=== PATIENT | female | born 1995 | race Caucasian/White ===

== ENCOUNTER → 2017-06-29 | Outpatient (CLI) | payer OTHER ==
[~2017-06-29] MED LIST: OCP; SULF-222 PO
[2017-06-29 16:02] LABS: BASOPHILS % (AUTO) 0 % (0-10); EOSINOPHILS # (AUTO) 0.1 10^3/uL (0.0-0.3); EOSINOPHILS % (AUTO) 2 % (0-10); LYMPHOCYTES # (AUTO) 3.3 X 10^3 (1.0-4.0); LYMPHOCYTES % (AUTO) 42 % (12-44); MEAN CORPUSCULAR HEMOGLOBIN 30 PG (25-34); MEAN CORPUSCULAR HGB CONC 34 G/DL (32-36); MEAN CORPUSCULAR VOLUME 89 FL (80-99); MEAN PLATELET VOLUME 9.3 FL (7.4-10.4); MONOCYTES # (AUTO) 1.1 X 10^3 (0.0-1.0); MONOCYTES % (AUTO) 13 % (0-12); NEUTROPHILS # (AUTO) 3.5 X 10^3 (1.8-7.8); NEUTROPHILS % (AUTO) 43 % (42-75); PLATELET COUNT 254 10^3/uL (130-400); RED BLOOD COUNT 4.39 10^6/uL (4.35-5.85); RED CELL DISTRIBUTION WIDTH 12.9 % (10.0-14.5)
[2017-06-29 16:03] LABS: BILIRUBIN,URINE NEGATIVE (NEGATIVE); KETONES,URINE NEGATIVE (NEGATIVE); LEUKOCYTE ESTERASE ,URINE NEGATIVE (NEGATIVE); NITRITE,URINE NEGATIVE (NEGATIVE); PH,URINE 6 (5-9); PROTEIN,URINE NEGATIVE (NEGATIVE); UROBILINOGEN,URINE NORMAL (NORMAL)
[2017-06-29 16:12] LABS: SQUAMOUS EPITHELIAL CELL,UR 0-2 /HPF; WBC,URINE RARE /HPF
[2017-06-29 16:22] LABS: ALANINE AMINOTRANSFERASE 14 U/L (0-55); ALBUMIN 4.6 GM/DL (3.2-4.5); ANION GAP 6 MMOL/L (5-14); ASPARTATE AMINO TRANSFERASE 17 U/L (5-34); BILIRUBIN,TOTAL 0.3 MG/DL (0.1-1.0); BLOOD UREA NITROGEN 17 MG/DL (7-18); BUN/CREATININE RATIO 22; CALCIUM 9.8 MG/DL (8.5-10.1); CARBON DIOXIDE 28 MMOL/L (21-32); CHLORIDE 104 MMOL/L (98-107); CREATININE SERUM 0.78 MG/DL (0.60-1.30); GFR ESTIMATED > 60; GLUCOSE 82 MG/DL (70-105); POTASSIUM 3.7 MMOL/L (3.6-5.0); SODIUM 138 MMOL/L (135-145); TOTAL PROTEIN 7.5 GM/DL (6.4-8.2)
== END ==
LOC: LAB 15:39
PROVIDERS: ATTEND Family Medicine
DX: N93.9 Abnormal uterine and vaginal bleeding, unspecified; R10.2 Pelvic and perineal pain
CPT/HCPCS: 36415; 80053; 81000; 84703; 85025

== ENCOUNTER → 2019-06-18 | Outpatient (CLI) | payer OTHER ==
--- NOTE | 2019-06-18 12:45 | Diagnostic Imaging Report ---
INDICATION: Left flank pain. FINDINGS: Supine image of the abdomen revealed normal bowel gas pattern. There is moderate amount of stool at the level of the transverse colon. Intrauterine device appears to be in good position. There is no evidence of free intraperitoneal gas or pneumatosis. No pathologic abdominal calcification is seen. IMPRESSION: There may be mild constipation, however, no acute abnormality is seen in the abdomen. Dictated by: Dictated on workstation # [id number]
== END ==
LOC: RAD 12:22
PROVIDERS: ATTEND Nurse Practitioner Family
DX: R10.9 Unspecified abdominal pain (principal)
CPT/HCPCS: 74018

== ENCOUNTER → 2019-07-09 | Outpatient (CLI) | payer OTHER ==
--- NOTE | 2019-07-09 11:11 | Diagnostic Imaging Report ---
INDICATION: Right wrist injury from a fall 3 views of the right wrist show no fracture or dislocation. Joint space is well-maintained. Articular surfaces are smooth. IMPRESSION: Negative right wrist Dictated by: Dictated on workstation # [id number]
== END ==
LOC: RAD 10:50
PROVIDERS: ATTEND Nurse Practitioner Family
DX: S69.91XA Unspecified injury of right wrist, hand and finger(s), initial encounter (principal); W19.XXXA Unspecified fall, initial encounter
CPT/HCPCS: 73110

== ENCOUNTER → 2020-06-18 | Outpatient (CLI) | payer OTHER | LOC: LABNPT 05:57 | PROVIDERS: ATTEND Nurse Practitioner Family | DX: J02.9 Acute pharyngitis, unspecified (principal); R11.2 Nausea with vomiting, unspecified; Z20.828 Contact with and (suspected) exposure to other viral communicable diseases | CPT/HCPCS: 87635 ==

== ENCOUNTER → 2022-09-10 | Outpatient (CLI) | payer OTHER | LOC: LAB 14:19 | PROVIDERS: ATTEND Obstetrics & Gynecology | DX: N92.6 Irregular menstruation, unspecified (principal) | CPT/HCPCS: 84702 ==

== ENCOUNTER 2022-11-18 14:27 | Emergency (ER) | payer OTHER ==
[~2022-11-18] VITALS: Ht 157 cm; Wt 52.6 kg
--- NOTE | 2022-11-18 14:42 | ED Abdominal Pain ---
General Chief Complaint: Abdominal/GI Problems Stated Complaint: LOWER BACK PAIN | POSSIBLE KIDNEY STONES Source of Information: Patient Exam Limitations: No Limitations History of Present Illness Date Seen by Provider: Nov 18, 2022 Time Seen by Provider: 14:40 Initial Comments Patient is a 27-year-old female who presents ED with left flank pain. Started on Tuesday abrupt onset. Described as sharp and stabbing with radiation to the left-sided abdomen. Patient states she did vomited Tuesday but was concerned for possible food poisoning. This pain has been constant. She also started her menstrual cycle and denies heavier bleeding. Denies of any urinary symptoms such as pain with urination, bloody urine. She reports intermittent nausea without any diarrhea. No history of previous abdominal surgery or history of kidney stones. She did lift some heavy objects this past Tuesday but had no specific injury that she can recall. No history of previous pain to this location. Denies chest pain, shortness of breath, cough, headache, dizziness, fever, headache, chills. Took ibuprofen at home without much improvement. Rates pain 8 out of 10 Allergies and Home Medications Allergies Coded Allergies: Penicillins (Unverified Allergy, Unknown, 01/25/15) Patient Home Medication List Home Medication List Reviewed: Yes Hydrocodone/Acetaminophen (Hydrocodone-Acetamin 5-325 mg) 5 Mg-325 Mg Tablet, 1 TAB PO Q4H PRN for PAIN-MODERATE (5-7) Prescribed by: LETTY BLOUNT on 11/18/22 1610 Ketorolac Tromethamine (Ketorolac Tromethamine) 10 Mg Tablet, 10 MG PO Q6H Prescribed by: LETTY BLOUNT on 11/18/22 1609 Ondansetron (Ondansetron Odt) 4 Mg Tab.rapdis, 4 MG SL Q4H PRN for NAUSEA/VOMITING Prescribed by: LETTY BLOUNT on 11/18/22 1609 Tamsulosin HCl (Flomax) 0.4 Mg Cap, 0.4 MG PO DAILY Prescribed by: LETTY BLOUNT on 11/18/22 1609 Trimethoprim/Sulfamethoxazole (Bactrim DS) 1 Ea Tablet, 1 EA PO BID Prescribed by: CLINT ALLAN on 01/25/15 1642 [Ocp] , (Reported) Entered as Reported by: LAKSHMI BAUTISTA on 01/25/15 5838 Review of Systems Review of Systems Constitutional: No chills, No diaphoresis, No malaise, No weakness EENTM: No Eye Pain Respiratory: Denies Cough, Denies Shortness of Air, Denies SOA at Rest Genitourinary: Denies Drainage, Denies Frequency; Flank Pain; Denies Urgency Musculoskeletal: back pain; No joint pain All Other Systems Reviewed Negative Unless Noted: Yes Past Yejnclt-Ywwcvh-Wijxbm Hx Patient Social History Tobacco Use?: No Use of E-Cig and/or Vaping dev: Yes E-Cig or Vaping type used: Nicotine Substance use?: No Alcohol Use?: Yes Alcohol Frequency: Once in a while Pt feels they are or have been: No Immunizations Up To Date Influenza Vaccine Up-to-Date: No; Not Current Past Medical History Surgery/Hospitalization HX: SX: TONSILS, C-SEC Physical Exam Vital Signs Vital Signs - First Documented 11/18/22 14:37 Temp 36.8 Pulse 90 Resp 16 B/P (MAP) 145/89 (107) Pulse Ox 99 Capillary Refill : Height/Weight/BMI Height: 5'4" Weight: 105lbs. oz. 47.060322jn; BMI Method: General Appearance: WD/WN, no apparent distress HEENT: PERRL/EOMI, normal ENT inspection, TMs normal Neck: non-tender, full range of motion, supple Respiratory: chest non-tender, lungs clear, normal breath sounds, no r espiratory distress Cardiovascular: regular rate, rhythm, no edema, no gallop Gastrointestinal: normal bowel sounds, soft, no organomegaly, tenderness (Left- sided abdominal tenderness on palpation.) Extremities: normal range of motion, non-tender, normal inspection, no pedal edema Back: normal inspection, CVA tenderness (L) Neurologic/Psychiatric: utilization management rn II-XII nml as tested, no motor/sensory deficits, alert, normal mood/affect, oriented x 3 Skin: normal color, warm/dry Progress/Results/Core Measures Results/Orders Lab Results Laboratory Tests Test 11/18/22 14:37 11/18/22 14:55 Range/Units White Blood Count 11.6 H 4.3-11.0 10^3/uL Red Blood Count 4.40 3.80-5.11 10^6/uL Hemoglobin 13.4 11.5-16.0 g/dL Hematocrit 40 35-52 % Mean Corpuscular Volume 90 80-99 fL Mean Corpuscular Hemoglobin 31 25-34 pg Mean Corpuscular Hemoglobin Concent 34 32-36 g/dL Red Cell Distribution Width 12.3 10.0-14.5 % Platelet Count 275 130-400 10^3/uL Mean Platelet Volume 9.1 9.0-12.2 fL Immature Granulocyte % (Auto) 0 % Neutrophils (%) (Auto) 68 42-75 % Lymphocytes (%) (Auto) 20 12-44 % Monocytes (%) (Auto) 10 0-12 % Eosinophils (%) (Auto) 1 0-10 % Basophils (%) (Auto) 0 0-10 % Neutrophils # (Auto) 7.9 H 1.8-7.8 X 10^3 Lymphocytes # (Auto) 2.4 1.0-4.0 X 10^3 Monocytes # (Auto) 1.2 H 0.0-1.0 X 10^3 Eosinophils # (Auto) 0.2 0.0-0.3 10^3/uL Basophils # (Auto) 0.0 0.0-0.1 10^3/uL Immature Granulocyte # (Auto) 0.0 0.0-0.1 10^3/uL Sodium Level 140 135-145 MMOL/L Potassium Level 3.7 3.6-5.0 MMOL/L Chloride Level 106 98-107 MMOL/L Carbon Dioxide Level 25 21-32 MMOL/L Anion Gap 9 5-14 MMOL/L Blood Urea Nitrogen 18 7-18 MG/DL Creatinine 1.50 H 0.60-1.30 MG/DL Estimat Glomerular Filtration Rate 49 BUN/Creatinine Ratio 12 Glucose Level 113 H 70-105 MG/DL Calcium Level 9.3 8.5-10.1 MG/DL Corrected Calcium 8.9 8.5-10.1 MG/DL Total Bilirubin 0.6 0.1-1.0 MG/DL Aspartate Amino Transf (AST/SGOT) 16 5-34 U/L Alanine Aminotransferase (ALT/SGPT) 9 0-55 U/L Alkaline Phosphatase 63 40-136 U/L Total Protein 7.7 6.4-8.2 GM/DL Albumin 4.5 3.2-4.5 GM/DL Lipase 24 8-78 U/L Serum Test, Qualitative NEGATIVE NEGATIVE Urine Color YELLOW Urine Clarity CLEAR Urine pH 6.0 5-9 Urine Specific [place] 1.025 H 1.016-1.022 Urine Protein TRACE H NEGATIVE Urine Glucose (UA) NEGATIVE NEGATIVE Urine Ketones NEGATIVE NEGATIVE Urine Nitrite NEGATIVE NEGATIVE Urine Bilirubin NEGATIVE NEGATIVE Urine Urobilinogen 0.2 < = 1.0 MG/DL Urine Leukocyte Esterase NEGATIVE NEGATIVE Urine RBC (Auto) 3+ H NEGATIVE Urine RBC 50-100 H /HPF Urine WBC NONE /HPF Urine Squamous Epithelial Cells 5-10 /HPF Urine Crystals NONE /LPF Urine Bacteria NEGATIVE /HPF Urine Casts NONE /LPF Urine Mucus NEGATIVE /LPF Urine Culture Indicated NO My Orders Orders - MYRANDA DESAI Ua Culture If Indicated (11/18/22 14:29) Cbc With Automated Diff (11/18/22 14:39) Comprehensive Metabolic Panel (11/18/22 14:39) Lipase (11/18/22 14:39) Ketorolac Injection (Toradol Injection) (11/18/22 14:45) Hcg,Qualitative Serum (11/18/22 14:45) Ct Abd/Pelvis Wo(Kidney Stone) (11/18/22 14:45) Ns Iv 1000 Ml (Sodium Chloride 0.9%) (11/18/22 15:42) Medications Given in ED Current Medications Medications Dose Ordered Sig/Anna Route Start Time Stop Time Status Last Admin Dose Admin Ketorolac Tromethamine 30 mg ONCE ONCE IVP 11/18/22 14:45 11/18/22 14:46 DC 11/18/22 14:43 30 MG Vital Signs/I&O 11/18/22 14:37 Temp 36.8 Pulse 90 Resp 16 B/P (MAP) 145/89 (107) Pulse Ox 99 Departure Communication (PCP) Patient has a 6.8 mm obstructing stone in left UPJ. Urinalysis was positive for hematuria without evidence of infection. White blood count 1.6. Slight change in kidney function of creatinine 1.5, GFR 43. Pain improved with IV Toradol. Was started on a liter of fluid. Patient without any active vomiting. CT abdomen pelvis did note a 2 mm stone in the right kidney. Discussed results with Dr. Randolph urologist at [facility]. Patient's pain currently 3 out of 10. As long as patient is improved the pain patient can be discharged home with follow-up this next week in their office. They will call patient. This number was provided to staff. Urinalysis negative for . Patient will be discharged for Zofran as needed for nausea, Flomax to help urinate and Toradol. Patient was requesting Toradol for pain as she cannot tolerate narcotics.. Did provide a few days worth of hydrocodone for breakthrough pain. If any worsening symptoms and pain to return back to ED for further evaluation such as decreased urine output, passing of clots, fever Impression Primary Impression: Nephrolithiasis Disposition: HOME, SELF-CARE Condition: Stable Departure-Patient Inst. Decision time for Depature: 15:52 Referrals: FLAVIA ABAD MD (PCP/Family) Primary Care Physician Patient Instructions: Kidney Stone, Adult ED Add. Discharge Instructions: Expecting a call from Dr. Randolph urology at [facility]. Recommend staying hydrated. Flomax will help urinate. Zofran for nausea. Take Toradol for pain. If no improvement may take hydrocodone All discharge instructions reviewed with patient and/or family. Voiced understanding. Scripts Hydrocodone/Acetaminophen (Hydrocodone-Acetamin 5-325 mg) 5 Mg-325 Mg Tablet 1 TAB PO Q4H PRN for PAIN-MODERATE (5-7), #8 TAB Prov: MYRANDA DESAI 11/18/22 Ketorolac Tromethamine (Ketorolac Tromethamine) 10 Mg Tablet 10 MG PO Q6H, #16 TAB Prov: MYRANDA DESAI 11/18/22 Tamsulosin HCl (Flomax) 0.4 Mg Cap 0.4 MG PO DAILY, #14 CAP Prov: MYRANDA DESAI 11/18/22 Ondansetron (Ondansetron Odt) 4 Mg Tab.rapdis 4 MG SL Q4H PRN for NAUSEA/VOMITING, #8 TAB Prov: MYRANDA DESAI 11/18/22 Work/School Note: Work Release Form Date Seen in the Emergency Department: Nov 18, 2022 Return to Work: Nov 15, 2022 MYRANDA DESAI Nov 18, 2022 14:42
[2022-11-18] MEDS ORDERED: KETOROLAC 30 MG/ML VIAL IVP ONE (14:45)
[2022-11-18 14:53] LABS: ALBUMIN 4.5 GM/DL (3.2-4.5); POTASSIUM 3.7 MMOL/L (3.6-5.0)
[2022-11-18 14:54] LABS: CALCIUM 9.3 MG/DL (8.5-10.1)
[2022-11-18 14:55] LABS: TOTAL PROTEIN 7.7 GM/DL (6.4-8.2)
[2022-11-18 14:56] LABS: BASOPHILS % (AUTO) 0 % (0-10); EOSINOPHILS # (AUTO) 0.2 10^3/uL (0.0-0.3); EOSINOPHILS % (AUTO) 1 % (0-10); HEMATOCRIT 40 % (35-52); HEMOGLOBIN 13.4 g/dL (11.5-16.0); LYMPHOCYTES # (AUTO) 2.4 X 10^3 (1.0-4.0); LYMPHOCYTES % (AUTO) 20 % (12-44); MEAN CORPUSCULAR HEMOGLOBIN 31 pg (25-34); MEAN CORPUSCULAR HGB CONC 34 g/dL (32-36); MEAN CORPUSCULAR VOLUME 90 fL (80-99); MEAN PLATELET VOLUME 9.1 fL (9.0-12.2); MONOCYTES # (AUTO) 1.2 X 10^3 (0.0-1.0); MONOCYTES % (AUTO) 10 % (0-12); NEUTROPHILS # (AUTO) 7.9 X 10^3 (1.8-7.8); NEUTROPHILS % (AUTO) 68 % (42-75); PLATELET COUNT 275 10^3/uL (130-400); WHITE BLOOD COUNT 11.6 10^3/uL (4.3-11.0)
[2022-11-18 14:57] LABS: BILIRUBIN,TOTAL 0.6 MG/DL (0.1-1.0)
[2022-11-18 14:59] LABS: CREATININE SERUM 1.5 MG/DL (0.60-1.30)
[2022-11-18 15:02] LABS: BILIRUBIN,URINE NEGATIVE (NEGATIVE); CLARITY,URINE CLEAR; COLOR,URINE YELLOW; GLUCOSE, URINE (UA) NEGATIVE (NEGATIVE); KETONES,URINE NEGATIVE (NEGATIVE); LEUKOCYTE ESTERASE ,URINE NEGATIVE (NEGATIVE); NITRITE,URINE NEGATIVE (NEGATIVE); PROTEIN,URINE TRACE (NEGATIVE)
[2022-11-18 15:33] LABS: BACTERIA,URINE NEGATIVE /HPF; RBC,URINE 50-100 /HPF
--- NOTE | 2022-11-18 15:37 | Diagnostic Imaging Report ---
PROCEDURE: CT urinary tract, rule out kidney stone. TECHNIQUE: Multiple contiguous axial images were obtained through the abdomen and pelvis without the use of intravenous contrast. Auto Exposure Controls were utilized during the CT exam to meet ALARA standards for radiation dose reduction. INDICATION: Left flank pain. EXAMINATION: Noncontrast abdominopelvic CT performed with sagittal and coronal reconstructions. COMPARISON: None. FINDINGS: Leftward convexity thoracolumbar rotoscoliotic curvature. No acute bony abnormality. Lung bases clear. Liver, gallbladder and bile ducts normal. There are multiple bilateral intrarenal calculi measuring maximal 2 mm. There is a dominant stone at the level of the left ureteropelvic junction measuring 6.8 mm resulting in a moderate severity of hydronephrosis proximal. Right ureter negative. Right kidney unobstructed. Urinary bladder unremarkable. Uterus and adnexa unremarkable. There is no appendicitis or diverticulitis. No aneurysm. No ascites, abscess, hematoma or fluid collection. Spleen, adrenals and pancreas nonacute. IMPRESSION: 1. Bilateral nephrolithiasis with an obstructing stone at the left UPJ measuring 6.8 mm resulting in moderate upstream hydronephrosis. 2. No other significant finding. Dictated by: Dictated on workstation # [id number]
[2022-11-18] MEDS ORDERED: NS IV 1000 ML 1,000 ML IV STA (15:42)
[2022-11-18] MEDS ORDERED: TMSL.4C PO (16:09)
[2022-11-18] MEDS ORDERED: KETO10TA PO (16:09)
[2022-11-18] MEDS ORDERED: ONDA4TAB11 SL (16:09)
[2022-11-18] MEDS ORDERED: ACHD5005 PO (16:09)
[2022-11-18 16:58] VITALS: BP 117/82
== END 2022-11-18 16:58 | disposition home or self-care (01) ==
LOC: EDUNIT# 14:27 → ER 14:29
DX: N20.0 Calculus of kidney (principal); F17.290 Nicotine dependence, other tobacco product, uncomplicated
CPT/HCPCS: 36415; 74176; 80053; 81000; 83690; 84703; 85025; 99282

== ENCOUNTER → 2023-01-03 | Outpatient (CLI) | payer OTHER ==
[~2023-01-03] MED LIST changes: +ACHD5005 PO; +KETO10TA PO; +ONDA4TAB11 SL; +TMSL.4C PO
--- NOTE | 2023-01-03 09:37 | Diagnostic Imaging Report ---
PROCEDURE: US Renal Bilateral. TECHNIQUE: Multiple real-time grayscale images were obtained over the kidneys in various projections bilaterally. INDICATION: Nephrolithiasis Right kidney measures 11.2 x 3.4 x 3.7 cm. Left kidney measures 12.1 x 5.3 x 5.7 cm. There is grade 2 hydronephrosis of the right kidney. There is grade 3 hydronephrosis of left kidney. Right ureteral jet was seen in the bladder. Left ureteral jet was not seen. IMPRESSION: Grade 2 hydronephrosis right kidney. Grade 3 hydronephrosis left kidney. No definite calculi seen. Dictated by: Dictated on workstation # [id number]
== END ==
LOC: RAD 09:00
PROVIDERS: ATTEND Nurse Practitioner Family
DX: N13.2 Hydronephrosis with renal and ureteral calculous obstruction (principal)
CPT/HCPCS: 76770